=== PATIENT | male | born 1945 | race Caucasian/White ===

== ENCOUNTER → 2024-02-12 14:41 | Outpatient (REF) | payer MEDICARE, SELFPAY | LOC: HWRCS 14:41 | PROVIDERS: ATTENDING PHYSICIAN Family Medicine | DX: R01.1 Cardiac murmur, unspecified (principal) | CPT/HCPCS: 93306 ==

== ENCOUNTER 2025-04-29 21:05 | Day surgery (SDC) | payer MEDICARE, SELFPAY ==
[2025-04-29] VITALS (10 sets, daily range): BP systolic 132–152; BP diastolic 56–69
--- NOTE | 2025-04-29 19:54 | ED.GENMED ---
History of Present Illness
General
Chief Complaint: Esophageal Problem
Source: patient
Exam Limitations: none
Time Seen by Provider: 04/29/25 19:50
Nursing documentation reviewed up to this point in time: agreed with
History of Present Illness
History of Present Illness:
80-year-old male presents emergency department due to difficulty swallowing since eating chicken dinner at 4 PM. He vomited. When he was drinking water and soda he was spitting up. He states while in the waiting room he drank some water and was
able to tolerate it. He has not spit up since.
Past History
Past History
ED Past Medical History: HTN, Hypercholesterolemia, NIDDM and Hypothyroidism
ED Past Surgical History: Appendectomy, Orthopedic (left knee replacement x 2, neck surgery, amputation right fingers #4 and 5) and Tonsilectomy
Social History
Tobacco: Former smoker
Alcohol: None
Drug: None
Personal:
Living: with family
Employment: Employed
Review of Systems
Review of Systems
Allergies reviewed?: Yes
All Other Systems: Not applicable
Constitutional: Reports no symptoms
EENT: Reports other (Difficulty swallowing)
Respiratory: Reports no symptoms
Cardiac: Reports no symptoms
ABD/GI: Reports vomiting
: Reports no symptoms
Musculoskeletal: Reports no symptoms
Skin: Reports no symptoms
Neurological: Reports no symptoms
Endocrine: Reports no symptoms
Hematologic/Lymphatic: Reports no symptoms
Psychiatric: Reports no symptoms
Phy Exam
Physical Exam
Physical Exam:
Physical Exam
General: no apparent distress, not acutely ill
Neck: supple. no meningeal signs. normal posterior pharynx
Heart: s1/s2 regular rate and rhythm, no murmur. equal radial
pulses.
HEENT: Pupils equal round reactive to light, EOMI
Lungs: no acute respiratory distress. clear bilaterally
Abdomen: normal bowel sounds. not tender. no CVAT
Neuro: alert and oriented. no focal neurological deficits cranial nerves II through XII intact
Skin: no rash
Psychiatric: well kept. interactive and cooperative
Extremities: no edema. no calf tenderness. negative homans. good distal pulses
Course
Vital Signs
Initial and Last Documented VS:
Initial Vital Signs
Temp Pulse Resp BP Pulse Ox
99 F 54 16 149/61 95
04/29/25 18:16 04/29/25 18:16 04/29/25 18:16 04/29/25 18:16 04/29/25 18:16
Last Documented Vital Signs
Temp Pulse Resp BP Pulse Ox
99 F 54 16 149/61 95
04/29/25 18:16 04/29/25 18:16 04/29/25 18:16 04/29/25 18:16 04/29/25 18:16
MDM/Problems Addressed
Differential Diagnosis Includes:
esophageal food bolus, gastroenteritis
MDM/Problems Addressed:
80-year-old male with esophageal food bolus not tolerating secretions getting glucagon in ED. Discussed with Dr. Curran, requested she take patient for endoscopy.
Chronic conditions affecting care: HTN
*Pulse Oximetry
SaO2: 95
Oxygen Mode of Delivery: Room air
Patient hypoxic: no
*Critical Care Note
Total Time (30-74mins, 75-104mins- exclusive of procedures): Not Applicable
Patient Management
Social determinants of health affecting care: Living situation and Strong social support
Discussion with other providers: Hatchery Supervisor (gastroenterology)
Escalation/DeEscalation of care consider admission/obs:
admit to GI lab indicated
ED Attending Note
-
Portions of this chart may have been created with voice recognition software.� Occasional wrong word or��sound alike� substitutions may have occurred due to the inherent limitations of voice recognition software.
Discharge Plan
Departure
Patient Disposition: GI LAB
Date of Disposition: 04/29/25
Time of Disposition: 20:04
Presentation/result/management discussed w/ accepting /DO: LIOR Curran
Patient with high blood pressure during this ER visit?: Yes
Condition: Good
Discharge Problem:
Esophageal obstruction due to food impaction
Prescriptions:
No Action
Actos:
1 tab PO DAILY
Aspirin Low (Enteric Coated):
81 mg PO DAILY
levothyroxine 112 MCG tablet
1 tab PO DAILY
Lexapro:
1 tab PO DAILY
Patient Comments:
unsure of dose
Metformin HCl
1 tab PO BID
Patient Comments:
unsure of dose
Discharge Date and Time
Print Language: [place]
[2025-04-29] MEDS: GlucaGen 1 MG IV ×2 (20:16→20:26)
--- NOTE | 2025-04-29 21:08 | CON.GI ---
Consultation
-
Date/Time Consultation Requested: 04/29/2025, 8pm
Date/Time Consultation Performed: 04/29/2025, 9pm
Requesting Provider: Dr. Connor
Performing Provider: Dr. Curran
Reason for Consultation: food bolus
Medical History
Chief Complaint / HPI
Chief Complaint: food bolus
History of Present Illness:
80 yo male here with food impaction after eating chicken 4pm. Was spitting up fluids. Got glucagon x2 in ER.
Past Medical History
Past Medical History: HTN, Hypercholesterolemia, Hypothyroidism and NIDDM
Past Surgical History: Appendectomy, Orthopedic and Tonsilectomy
Social History
Tobacco: Former Smoker
Alcohol: None
Drug: None
Family History
Family History: Reviewed & Not Pertinent
Allergies / Home Medications
Allergy/AdvReac Type Severity Reaction Status Date / Time
seasonal allergies Allergy nasal Uncoded 04/29/25 18:20
symptoms
�Medication �Instructions �Recorded
Actos: 1 tab PO DAILY 11/21/19
Aspirin Low (Enteric Coated): 81 mg PO DAILY 11/21/19
Lexapro: 1 tab PO DAILY 11/21/19
Metformin HCl 1 tab PO BID 11/21/19
levothyroxine 112 mcg tablet 1 tab PO DAILY 11/21/19
Review of Systems
-
All other systems: A 12 pt ROS was Negative except as stated above in HPI
Vital Signs
Temp Pulse Resp BP Pulse Ox
99 F 54 16 149/61 95
04/29/25 18:16 04/29/25 18:16 04/29/25 18:16 04/29/25 18:16 04/29/25 19:58
Physical Exam
Exam
General: Well Developed
HEENT: Normocephalic
Respiratory: Clear
Cardiac: S1/S2
GI: Non Tender and Non Distended
Musculoskeletal: No Clubbing
Skin: Warm
Neuro: AO x 3
Psych: Calm
Results
Diagnostic Image Results:
Prior GI Procedures:
EGD:
Colonoscopy:
Assessment / Plan
-
80 yo M here for food impaction.
Plan EGD r/a/b reviewed with pt risks inc not limited to bleeding, infection, perforation.
Pt agreeable.
-
-
Thank you for consultation and allowing me to participate in the patient's care. Please call the correctional counselor/case manager GI physician during the after hours with any questions or concerns.
[2025-04-29 21:14] LABS: Glucose - Point of Care 131 mg/dl (70-99)
--- NOTE | 2025-04-29 22:43 | PTCARENOTE ---
pt is discharge to home. VSS, denies any pain andor discomfort. pt is discharge to home via uber adn oked by Dr. Curran.
== END 2025-04-29 22:39 | disposition home or self-care (01) ==
LOC: SDS 21:05
PROVIDERS: ATTENDING PHYSICIAN Podiatrist Foot & Ankle Surgery; EMERGENCY PHYSICIAN Emergency Medicine; FAMILY PHYSICIAN Family Medicine
DX: T18.128A Food in esophagus causing other injury, initial encounter (principal); K44.9 Diaphragmatic hernia without obstruction or gangrene; K22.2 Esophageal obstruction; Q39.9 Congenital malformation of esophagus, unspecified; K31.89 Other diseases of stomach and duodenum; E11.9 Type 2 diabetes mellitus without complications; E78.00 Pure hypercholesterolemia, unspecified; E03.9 Hypothyroidism, unspecified; I10 Essential (primary) hypertension; W44.F3XA Food entering into or through a natural orifice, initial encounter; Z87.891 Personal history of nicotine dependence
CPT/HCPCS: 43247; 43239; 88305; 82962; 96374; 96376; 99285; J1610